=== PATIENT | male | born 1970 | race Caucasian/White ===

== ENCOUNTER 2017-05-20 02:35 | Day surgery (SDC) | payer BC ==
[~2017-05-20] VITALS: Ht 180.3 cm; Wt 94.3 kg
[~2017-05-20 02:35] MED LIST: LISI20TA29 PO
[2017-05-20] MEDS ORDERED: LIDOCAINE/SOD BICARB 8.4% SYR ID ONE (10:10)
[2017-05-20] MEDS ORDERED: MIDAZOLAM 2 MG/2 ML VIAL IVP PRN (10:10)
[2017-05-20] MEDS ORDERED: cefTRIAXone(*) 1 GM VIAL 1 GM in NS(*) 0.9% 100 ML BAG 100 ML IVPB ONE (10:10)
[2017-05-20] MEDS ORDERED: NORMOSOL R SOLN(*) 1000 ML BAG 1,000 ML IV PRN (10:10)
[2017-05-20] MEDS ORDERED: GENTAMICIN(*) 80 MG/2 ML VIAL 160 MG in NS(*) 0.9% 100 ML BAG 100 ML IVPB ONE (10:10)
[2017-05-20] MEDS ORDERED: FAMOTIDINE 20 MG TAB PO ONE (10:10)
[2017-05-20 14:40] VITALS: BP 151/85
[2017-05-20 14:42] LABS: PLATELET COUNT, AUTOMATED 200 K/uL (150-450)
--- NOTE | 2017-05-20 15:06 | EKG ---
[place] [facility] [place] NAME: JEREMY SMITH : [id number] MR: [id number] V: [id number] EXAM DATE: ORDERING PHYSICIAN: FELIX ROTHMAN TECHNOLOGIST: Test Reason : PREOP-PROSTATE Blood Pressure : / mmHG Vent. Rate : 067 BPM Atrial Rate : 067 BPM P-R Int : 166 ms QRS Dur : 110 ms QT Int : 412 ms P-R-T Axes : 070 049 054 degrees QTc Int : 435 ms Normal sinus rhythm Normal ECG No previous ECGs available Confirmed by HOSSEIN VALENTINE ([id number]) on 05/21/2017 1:28:58 AM Referred By: NIKKI Confirmed By:HOSSEIN VALENTINE
[2017-05-20] MEDS ORDERED: fentaNYL CITR 100 MCG/2 ML AMP ONE ×2 (15:08→17:57)
[2017-05-20] MEDS ORDERED: DEXAMETHASONE SOD 4 MG/ML VIAL ONE (15:08)
[2017-05-20] MEDS ORDERED: LIDOCAINE MPF 1% 5 ML VIAL ONE (15:08)
[2017-05-20] MEDS ORDERED: PROPOFOL EMUL(*) 10MG/ML 20 ML 20 ML ONE (15:08)
[2017-05-20] MEDS ORDERED: ONDANSETRON 4 MG/2 ML VIAL ONE (15:08)
[2017-05-20] MEDS ORDERED: METOCLOPRAMIDE 10 MG/2 ML SDV ONE (15:08)
[2017-05-20] MEDS ORDERED: FAMO20TA28 PO (19:05)
[2017-05-20] MEDS ORDERED: IBUP800T37 PO (19:06)
[2017-05-20] MEDS ORDERED: LEVO-85 PO (19:06)
[2017-05-20] MEDS ORDERED: HYDR-4308 PO (19:08)
--- NOTE | 2017-05-21 08:02 | RADIOLOGY IMAGING REPORT ---
FACILITY: [facility] PATIENT NAME: Chuck Barron : 1970 MR: [id number] V: [id number] EXAM DATE: ORDERING PHYSICIAN: JUAN R JORDAN TECHNOLOGIST: Location: [facility] Patient: Chuck Barron : 1970 Visit/Account:[id number] Date of Sevice: 05/20/2017 PROSTATE BIOPSY HISTORY: Elevated PSA. Prostate biopsy. COMPARISON: None. FINDINGS: Ultrasound provided for guidance during prostate biopsy performed by the Urology Service. Images demonstrate transrectal ultrasound the prostate. IMPRESSION: Ultrasound provided for guidance during prostate biopsy performed by the Urology Service. Please see the performing provider's procedure note for further details. Report Dictated By: Jassi Monroe MD at 05/21/2017 7:56 AM Report E-Signed By: Jassi Monroe MD at 05/21/2017 7:58 AM WSN:[id number]
--- NOTE | 2017-05-21 17:28 | OPERATIVE REPORT 1 ---
EVENT DATE: 05/20/2017 SURGEON: Dimitry Sheikh MD ANESTHESIOLOGIST: Arnulfo Tiwari MD ANESTHESIA: General anesthetic. PREOPERATIVE DIAGNOSES 1. Elevated prostate-specific antigen, etiology ? 2. Abnormal-feeling prostate, etiology ? 3. Difficulty with micturition. POSTOPERATIVE DIAGNOSES 1. Elevated prostate-specific antigen, etiology ? 2. Abnormal-feeling prostate, etiology ? 3. Difficulty with micturition. PROCEDURES PERFORMED 1. Prostate ultrasound. 2. Transrectal biopsies times 13. 3. Cystourethroscopy. 4. Evacuation of blood clots from the bladder. DESCRIPTION OF PROCEDURE Under general anesthetic, the patient was prepped and draped in the extended lithotomy position. Digital rectal examination revealed an approximately 1 cm nodule in the left mid apical area of the left lateral lobe of the prostate. A free-hand sample was obtained from the lesion at the left mid lateral apical area. Prostate ultrasound was performed. Prostate measured a total of approximately 26 g. There was approximately a 1.5 cm hypoechoic area in the left lateral mid apical area of the prostate. There were a few scattered calculi. There was a cystic lesion in the left mid prostate. Biopsies were obtained from the base, mid, and apical areas of the prostate times two. In addition, as previously alluded, a free sample was obtained from the lesion in the left mid lateral apical area of the prostate. The ultrasound was removed after the biopsies. Digital examination revealed a small amount of blood in the rectal ampulla. The patient was reprepped and draped. The 21 panendoscope was admitted through the urethra into the bladder. The urethra was normal. The prostate showed trilobar hyperplasia with obstruction. The verumontanum was normal. No inflammatory polyps. There was a small amount of blood in the prostatic urethra. The bladder showed 3 to 4+ trabeculation. The trigone and ureteral orifices were normal. No bloody efflux from either orifice. Multiple small clots were evacuated from the bladder. No other demonstrable lesions or bleeding. The bladder was drained. Digital rectal examination revealed no blood in the rectal ampulla. The patient tolerated the procedure satisfactorily and returned to the recovery room in satisfactory condition. This is a 46-year-old white male complaining of elevated PSA of 6.97 in March 2017. Digital rectal examination revealed a hard nodule in the area of the left mid lateral apical area of the prostate. The patient was so advised as to concern for possible adverse problem. The patient was agreeable to further evaluation. That has been accomplished. See the operative note for details. The patient will be ready for discharge home when alert and functional. He is to force fluids, 2 L per day. Activities are as tolerated. He is to continue his usual medications. A copy of instructions were given to the patient. We plan followup in the office on Sunday, May 28, 2017. He is to call for his biopsy results on Thursday, May 25, 2017, if desired. He was given my personal phone number to contact me if there are any problems, and if unable to contact me, to go to the emergency room. The patient will be discharged home on Levaquin, Pepcid, Motrin, Pyridium, and [place] therapy. MTDD
== END 2017-05-20 19:56 | disposition home or self-care (01) ==
LOC: OR 02:35
DX: R97.20 Elevated prostate specific antigen [PSA] (principal); R39.198 Other difficulties with micturition; I10 Essential (primary) hypertension
CPT/HCPCS: 36415; 52001; 55700; 76942; 85025; 88305; 88344; 93005; J1100; J1580; J2001; J2405; J2704; J2765; J3010; J7050; 82310; 82374; 82435; 82565; 82947; 84132; 84295; 84520

== ENCOUNTER → 2017-06-04 | Outpatient (CLI) | payer BC ==
[~2017-06-04] MED LIST changes: +FAMO20TA28 PO; +HYDR-4308 PO; +IBUP800T37 PO; +IOPAMIDOL 76% 75 ML INFUS BTL 75 ML ONE; +LEVO-85 PO; +NS 0.9% 50 ML VIAL 50 ML ONE
--- NOTE | 2017-06-04 09:47 | RADIOLOGY IMAGING REPORT ---
FACILITY: [facility] PATIENT NAME: Chuck Barron : 1970 MR: [id number] V: [id number] EXAM DATE: ORDERING PHYSICIAN: JUAN R JORDAN TECHNOLOGIST: Location: [facility] Patient: Chuck Barron : 1970 Visit/Account:[id number] Date of Sevice: 06/04/2017 ABDOMEN/PELVIS W/WO CONTRAST HISTORY: Prostate cancer TECHNIQUE: Axial images acquired through the abdomen/pelvis both with and without IV contrast.. Nrei nal and sagittal reformatting also performed. Dose Lowering Technique One of the following dose optimization techniques was utilized in the performance of this exam: Autom ated exposure control; adjustment of the mA and/or kV according to the patient's size; or use of an i terative reconstruction technique. Specific details can be referenced in the facility's radiology C T exam operational policy. CONTRAST: 75 mL Isovue-370 COMPARISON: None. FINDINGS: Visualized lung bases: Negative. Hepatobiliary: Negative. Spleen: Negative. Adrenals: Negative. Pancreas: Negative. Kidneys ureters and bladder: Negative. Genitalia: Negative. GI: There is mild diverticulosis left-sided colon although no CT evidence of acute diverticulitis Vessels/spaces/nodes: Negative. Bones/soft tissues: No aggressive appearing bone lesions are seen Additional findings: None pertinent. IMPRESSION: There is mild diverticulosis left-sided colon although no CT evidence of acute diverticulitis otherwi se unremarkable CT of abdomen and pelvis Report Dictated By: Sarah Moreland MD at 06/04/2017 9:11 AM Report E-Signed By: Sarah Moreland MD at 06/04/2017 9:42 AM WSN:[id number]
--- NOTE | 2017-06-04 12:36 | RADIOLOGY IMAGING REPORT ---
FACILITY: [facility] - [place] PATIENT NAME: Chuck Barron : 1970 MR: [id number] V: [id number] EXAM DATE: ORDERING PHYSICIAN: JUAN R JORDAN TECHNOLOGIST: Location: [facility] Patient: Chuck Barron : 1970 Visit/Account:[id number] Date of Sevice: 06/04/2017 WHOLE BODY BONE SCAN HISTORY: Prostate cancer TECHNIQUE: 26.4 mCi technetium 99m HDP was injected intravenously. Delayed anterior and posterior wh ole body gamma camera images were obtained. Additional gamma camera images: Lateral views of the skull COMPARISON: None. FINDINGS: Bone radiotracer activity: No abnormal sites of metabolic uptake. Scattered degenerative changes. Extraosseous radiotracer activity: Unremarkable. Renal and urinary collecting system activity: Unremarkable. IMPRESSION: No visualized osseous metastasis. Report Dictated By: Nabeel Mcnamara MD at 06/04/2017 12:29 PM Report E-Signed By: Nabeel Mcnamara MD at 06/04/2017 12:31 PM WSN:[id number]
== END ==
LOC: CT 03:48
DX: K57.30 Diverticulosis of large intestine without perforation or abscess without bleeding (principal); C61 Malignant neoplasm of prostate
CPT/HCPCS: 74178; 78306; A9503; J7050; Q9967